=== PATIENT | female | born 1990 | race Caucasian/White ===

== ENCOUNTER → 2017-03-24 | Outpatient (CLI) | payer OTHER ==
--- NOTE | 2017-03-24 10:27 | DI ---
Indication: ITS.REASON: Displaced pilon fracture of right tibia, PROCEDURE: CT LOWER EXTREMITY RT W/O CONT: Encounter: Initial Comparison: None Technique: Axial noncontrast CT imaging of the right lower leg was performed. Coronal and sagittal two-dimensional reformats. Three-dimensional surface shaded volume rendered imaging was also created and reviewed. Automated Exposure Control and Iterative Reconstruction dose reducing techniques were utilized. Findings: Evaluation is limited due to significant metallic hardware artifact. Predominantly healed internally fixed distal tibial and fibular fractures are seen. There is a lateral low contact dynamic plate seen in the mid to distal tibia with multiple screws along with threaded cannulated lag screws across the medial malleolus and tibial plafond. There is also a lateral fixation plate and multiple screws in the distal fibula. There is heterotopic ossification seen anterior and posterior to the distal tibia. No acute fracture line is seen currently. There is a small cortical gap seen just above the medial malleolus on sagittal image #34 measuring 3 mm with some bridging callus formation here. There is significant irregularity of the distal tibial articular surface with multiple small defects. There is underlying degenerative change in the talar dome with cartilage loss and subchondral cyst formation. Disuse osteoporosis is noted within the bones of the visualized hindfoot, particularly the calcaneus. Evidence of prior external fixation hardware calcaneus. Bony demineralization of the tibia and fibula as well. Muscular attenuation is grossly normal. No focal fluid collections seen. Impression: 1. 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 No evidence of hardware loosening or failure. 2. Disuse osteoporosis. .
== END ==
LOC: IMA 09:27
PROVIDERS: ATTEND Orthopaedic Surgery Orthopaedic Trauma
DX: S82.871D Displaced pilon fracture of right tibia, subsequent encounter for closed fracture with routine healing (principal); X58.XXXD Exposure to other specified factors, subsequent encounter; M19.271 Secondary osteoarthritis, right ankle and foot; M81.8 Other osteoporosis without current pathological fracture